=== PATIENT | male | born 1970 | race Two or more races ===

== ENCOUNTER 2017-03-28 06:41 | Emergency (ER) | payer OTHER ==
[~2017-03-28] VITALS: Ht 180.3 cm; Wt 122.5 kg
[~2017-03-28 06:41] MED LIST: ANALPRAM HC 2.530 GM RC; BACTRIM DS TABL1 TAB PO; PERCOCET 5/321 UDTAB PO; RECTICARE30 GM TP; ULTRACET PO
== END 2017-03-28 13:46 | disposition home or self-care (01) ==
LOC: ER 06:41
DX: R06.02 Shortness of breath (principal); F06.4 Anxiety disorder due to known physiological condition

== ENCOUNTER 2017-08-18 07:15 | Day surgery (SDC) | payer OTHER | END 2017-08-18 11:34 | disposition home or self-care (01) | LOC: AMB-ENDOS 07:15 | DX: K63.89 Other specified diseases of intestine (principal); Z85.048 Personal history of other malignant neoplasm of rectum, rectosigmoid junction, and anus ==

== ENCOUNTER 2018-09-07 07:52 | Day surgery (SDC) | payer OTHER | END 2018-09-07 12:00 | disposition home or self-care (01) | LOC: AMB-ENDOS 07:52 | DX: K57.30 Diverticulosis of large intestine without perforation or abscess without bleeding (principal) ==

== ENCOUNTER 2018-09-19 16:22 | Outpatient (CLI) | payer OTHER | END 2018-09-19 16:33 | disposition home or self-care (01) | LOC: RAD 16:22 | DX: S29.9XXA Unspecified injury of thorax, initial encounter (principal); S27.329A Contusion of lung, unspecified, initial encounter; S22.39XA Fracture of one rib, unspecified side, initial encounter for closed fracture ==

== ENCOUNTER 2019-12-17 14:34 | Outpatient (CLI) | payer OTHER | END 2019-12-17 17:42 | disposition home or self-care (01) | LOC: OFIC 805 14:34 | PROVIDERS: ATTEND Otolaryngology Otology & Neurotology | DX: K21.9 Gastro-esophageal reflux disease without esophagitis (principal); J04.0 Acute laryngitis; R49.0 Dysphonia; J02.8 Acute pharyngitis due to other specified organisms ==

== ENCOUNTER → 2020-02-25 | Outpatient (CLI) | payer OTHER | END | disposition home or self-care (01) | LOC: OFIC 805 02-18 13:00 | PROVIDERS: ATTEND Otolaryngology Otology & Neurotology | DX: R49.0 Dysphonia (principal); J02.8 Acute pharyngitis due to other specified organisms; J04.0 Acute laryngitis; K21.9 Gastro-esophageal reflux disease without esophagitis ==

== ENCOUNTER → 2020-11-06 | Day surgery (SDC) | payer OTHER | END | disposition home or self-care (01) | LOC: ADM 11-03 15:30 → AMB-ENDOS 08:16 | PROVIDERS: ATTEND Surgery | DX: D12.3 Benign neoplasm of transverse colon (principal); K64.4 Residual hemorrhoidal skin tags; Z20.822 Contact with and (suspected) exposure to COVID-19 ==